=== PATIENT | male | born 1960 | race Hispanic/Latino ===

== ENCOUNTER → 2022-08-27 | Outpatient (CLI) | payer BC | END | disposition home or self-care (01) | LOC: RAH 15:54 | PROVIDERS: ATTEND Internal Medicine | DX: Z01.818 Encounter for other preprocedural examination (principal); L72.3 Sebaceous cyst; M47.815 Spondylosis without myelopathy or radiculopathy, thoracolumbar region | CPT/HCPCS: 71046 ==

== ENCOUNTER 2022-09-13 07:03 | Day surgery (SDC) | payer BC ==
[2022-09-11 16:08] LABS: BASOPHILS % (AUTO) 1.4 % (0.0-5.0); EOSINOPHILS % (AUTO) 3.3 % (0.0-8.0); HEMATOCRIT 44.5 % (42-54); LYMPHOCYTES % (AUTO) 25.5 % (21.0-51.0); MEAN CORPUSCULAR HEMOGLOBIN 26.8 pg (27.0-33.0); MEAN CORPUSCULAR HGB CONC 31.2 g/dL (32.0-36.0); MEAN CORPUSCULAR VOLUME 85.9 fL (79-99); MONOCYTES % (AUTO) 6.8 % (3.0-13.0); NEUTROPHILS % (AUTO) 62.9 % (40.0-77.0); PLATELET COUNT (AUTO) 209 K/uL (130-400); RED BLOOD CELL COUNT(AUTO) 5.18 MIL/uL (4.50-6.20); RED CELL DISTRIBUTION WIDTH 14.9 % (11.0-15.5)
[2022-09-11 16:20] VITALS: BP 185/90
[2022-09-11 16:22] LABS: CREATININE 0.8 mg/dL (0.5-1.5); POTASSIUM 3.8 mmol/L (3.5-5.1)
[~2022-09-13] VITALS: Ht 182.9 cm; Wt 69.5 kg
[2022-09-13] VITALS (16 sets, daily range): BP systolic 111–183; BP diastolic 65–98
[~2022-09-13 07:03] MED LIST: ATOR10 PO; CEVI30CA7 PO; EMPA10TA PO; FAMO20TA8 PO; FLUD0.1T2 PO; GABA-529 PO; LEVO100C4 PO; METO5VIA2 IJ; MIDO5TAB4 PO; PANT40TA54 PO; SERT-439 PO; TAMS-1 PO; TICA60TA PO
[2022-09-13] MEDS ORDERED: ALPR0.5T PO (07:26)
[2022-09-13] MEDS ORDERED: METO5TAB2 PO (07:30)
[2022-09-13] MEDS ORDERED: 0.9%NACL 1000ML 1,000 ML IV ONE (08:02)
[2022-09-13] MEDS ORDERED: SUCCINYLCHOLINE 200MG/10ML SYR ONE ×2 (08:44→08:46)
[2022-09-13] MEDS ORDERED: MIDAZOLAM HCL 1 MG/ML 2ML VIAL ONE (08:44)
[2022-09-13] MEDS ORDERED: LIDOCAINE PF 100MG/5ML (2%) SYRINGE 5ML ONE ×2 (08:44→08:46)
[2022-09-13] MEDS ORDERED: DEXAMETHASONE SOD PHOSPHATE 10MG/ML 1ML VIAL ONE (08:44)
[2022-09-13] MEDS ORDERED: ONDANSETRON 4MG INJ ONE ×2 (08:45→10:49)
[2022-09-13] MEDS ORDERED: GLYCOPYRROLATE 1 MG/5 ML SYRINGE ONE (08:45)
[2022-09-13] MEDS ORDERED: FENTANYL CITRATE PF 50 MCG/1 ML 2ML VIAL ONE (08:45)
[2022-09-13] MEDS ORDERED: ROCURONIUM 10MG/1ML SYR 10 MG/ML ML ONE (08:45)
[2022-09-13] MEDS ORDERED: PROPOFOL 10 MG/ML 20ML VIAL IV ONE (08:45)
[2022-09-13] MEDS ORDERED: NEOSTIGMINE 5MG/5ML SYR IV ONE (08:45)
[2022-09-13] MEDS ORDERED: PHENYLEPHRINE HCL 10 MG/ML 1ML VIAL IV ONE (09:06)
[2022-09-13] MEDS ORDERED: CLINDAMYCIN IVPB 900MG/50ML 50 ML IV ONE (09:20)
[2022-09-13] MEDS ORDERED: EPHEDRINE SULFATE 50 MG/ML AMPULE ONE (09:26)
[2022-09-13] MEDS ORDERED: MEPERIDINE-PF 25 MG/ML SYG ONE (10:48)
[2022-09-13] MEDS ORDERED: ACETAMINOPHEN 500 MG TABLET ONE (12:36)
== END 2022-09-13 12:20 | disposition home or self-care (01) ==
LOC: DAH 07:03
PROVIDERS: ATTEND Student in an Organized Health Care Education/Training Program
DX: L72.3 Sebaceous cyst (principal); Z20.822 Contact with and (suspected) exposure to COVID-19; I10 Essential (primary) hypertension; E11.9 Type 2 diabetes mellitus without complications; Z98.890 Other specified postprocedural states; Z88.1 Allergy status to other antibiotic agents; Z88.0 Allergy status to penicillin; Z79.899 Other long term (current) drug therapy
CPT/HCPCS: 80048; 85025; 87426; 36415; 71045; 93005; 21932; 11406; 82948 ×2; A6260; A4663; J3010; J0330 ×2; J3490 ×3; J1100; J2710; J7030; J2001 ×2; J2250; J2704; J2405 ×2; J2175; J2370; A4930; A4215; A4223; A4222; A4221; A4600